=== PATIENT | female | born 2005 | race African-American/Black ===

== ENCOUNTER 2023-08-01 01:13 | Emergency (ER) | payer SELFPAY ==
[2023-08-01] MEDS ORDERED: Ondansetron PF 4 MG/2 ML Vial ONE (01:27)
[2023-08-01 01:40] LABS: #Eosinphils 0.1 thou/uL (0.0-0.7); #Lymphocytes 1.6 thou/uL (1.20-3.40); #Monocytes 0.3 thou/uL (0.11-0.59); #Neutrophils 4.6 thou/uL (1.40-6.50); %Basophils 0.6 % (0.0-1.0); %Lymphocytes 24.6 % (28.0-48.0); %Monocytes 5.1 % (0.0-4.0); %Neutrophils 68.7 % (31.0-61.0); Hematocrit 35.9 % (36.0-47.0); Hemoglobin 12.1 g/dL (12.0-16.0); Mean Corpuscular HGB CONC 33.8 g/dL (32.0-36.0); Mean Corpuscular Hemoglobin 28.6 pg (25.0-35.0); Mean Corpuscular Volume 84.7 fl (78.0-98.0); Mean Platelet Volume 7.5 fL (7.4-10.4); Platelet Count 220 10x3/uL (130-400); RBC Distribution Width 13.5 % (11.5-14.5); Red Blood Cell (RBC) Count 4.24 mill/uL (4.00-5.20); White Blood Cell (WBC) Count 6.6 10x3/uL (4.8-10.8)
== END 2023-08-01 02:13 | disposition home or self-care (01) ==
LOC: BURERS 01:13
DX: O21.0 Mild hyperemesis gravidarum (principal); Z3A.13 13 weeks gestation of pregnancy
CPT/HCPCS: 85025; 96374; J2405